=== PATIENT | female | born 1960 | race Caucasian/White ===

== ENCOUNTER 2020-04-13 13:39 | Outpatient (CLI) | payer OTHER, SELFPAY ==
--- NOTE | ~2020-04-13 | DEXA_ITS ---
BMD(1) Young-Adult(2) Age-Matched(3) Region (g/cm2) T-score Z-score WHO Classification L1 1.321 1.5 1.6 Normal L2 1.650 3.6 3.7 Normal L3 1.681 3.7 3.8 Normal L4 1.545 2.5 2.6 Normal L1-L4 1.555 2.9 3.0 Normal Trend: L1-L4 Change vs Change vs Measured Age BMD(1) Baseline Previous Date (years) (g/cm2) (%) (%) 04/13/2020 59.9 1[age]555 baseline - 1 - Statistically 68% of repeat scans fall within 1SD (+- 0.010 g/cm2 for AP Spine L1-L4) 2 - [place] (Combined NHANES (ages 20-30) / Dragon Inside (ages 20-40)) AP Spine Reference Population (v112) 3 - Matched for Age, Weight (females 25-100 kg), Ethnic 11 - World Health Organization - Definition of Osteoporosis and Osteopenia for Women: Normal = T-score at or above -1.0 SD; Osteopenia = T-score between -1.0 and -2.5 SD; Osteoporosis = T-score at or below -2.5 SD; (WHO definitions only apply when a young healthy Women reference database is used to determine T-scores.) Printed: 04/13/2020 2:27:51 PM (13.60)76:3.00:22.22:27.0 0.00:11.82 0.60x1.05 28.4:%Fat=40.9% 0.00:0.00 0.00:0.00 Filename: [id number] Scan Mode: Thick;OneScan 83.0 [employer] [id number] BMD(1) Young-Adult(2,7) Age-Matched(3) Region (g/cm2) T-score Z-score WHO Classification Neck Left 1.042 0.0 0.5 Normal Right 1.031 -0.1 0.5 Normal Mean 1.036 0.0 0.5 Normal Difference 0.011 0.1 0.1 - Total Left 1.237 1.8 2.0 Normal Right 1.145 1.1 1.2 Normal Mean 1.191 1.5 1.6 Normal Difference 0.092 0.7 0.7 - Hip [place] Length Comparison (mm) (Right = 103.4 mm) (Mean = 105.3 mm) Trend: Total Mean Change vs Change vs Measured Age BMD(1) Baseline Previous Date (years) (g/cm2) (%) (%) 04/13/2020 60.9 1.191 baseline - 1 - Statistically 68% of repeat scans fall within 1SD (+- 0.010 g/cm2 for DualFemur Total) 2 - [place] (Combined NHANES (ages 20-30) / [employer] (ages 20-40)) Femur Reference Population (v112) 3 - Matched for Age, Weight (females 25-100 kg), Ethnic 7 - DualFemur Total T-score difference is 0.7. Asymmetry is Mild. 11 - World Health Organization - Definition of Osteoporosis and Osteopenia for Women: Normal = T-score at or above -1.0 SD; Osteopenia = T-score between -1.0 and -2.5 SD; Osteoporosis = T-score at or below -2.5 SD; (WHO definitions only apply when a young healthy Women reference database is used to determine T-scores.) Printed: 04/13/2020 2:27:52 PM (13.60); Filename: [id number]; Right Femur; 23.0:%Fat=35.1%; Neck Angle (deg)= 68; Scan Mode: Standard 37.0 uGy; Left Femur; 23.7:%Fat=38.2%; Neck Angle (deg)= 64; Scan Mode: Standard 37.0 uGy [employer] [id number] Dear Jessie Smith, Your patient Luli Stauffer completed a BMD test on 04/13/2020 using the [employer] DXA System (analysis version: 13.60) manufactured by [employer]. The following summarizes the results of our evaluation. PATIENT BIOGRAPHICAL: Name: Luli Stauffer Date: 1960 Height: 63.0 in. Gender: Female Exam Date: 04/13/2020 Weight: 240.0 lbs. Indications: Back Pain, Caffeinate
== END 2020-04-13 13:40 | disposition home or self-care (01) ==
LOC: CHSIMG 13:43
PROVIDERS: PCP Family Medicine
DX: Z13.820 Encounter for screening for osteoporosis (principal)
CPT/HCPCS: 77080